=== PATIENT | female | born 1950 | race Caucasian/White ===

== ENCOUNTER 2023-01-22 10:27 | Outpatient (CLI) | payer MEDICARE, BC, SELFPAY | END 2023-01-22 10:28 | disposition home or self-care (01) | LOC: AMB 01-26 17:24 | PROVIDERS: Visit Provider Family Medicine | DX: R42 Dizziness and giddiness (principal); R11.2 Nausea with vomiting, unspecified | CPT/HCPCS: A0425; A0427 ==

== ENCOUNTER 2023-01-22 10:52 | Emergency (ER) | payer MEDICARE, BC, SELFPAY ==
[2023-01-22] VITALS (20 sets, daily range): BP systolic 99–152; BP diastolic 66–91; PULSE 57–81; RESP 12–16; TEMP 36.1; O2SAT 89–100; BMI 31.9
[2023-01-22 11:45] LABS: Chloride* 105 mmol/L (96-114); Potassium* 3.8 mmol/L (3.6-5.1); Sodium* 132 mmol/L (135-149)
[2023-01-22 11:47] LABS: Creatinine* 0.9 mg/dL (0.5-1.5); Est. Creatinine Clearance* 49.79; Estimated Glomerular Filt Rate 67 ml/min
[2023-01-22 11:48] LABS: Anion Gap 8 mEq/L (7-15); Blood Urea Nitrogen* 20 mg/dL (7-30); Carbon Dioxide* 19 mmol/L (20-32); Glucose* 135 mg/dL (60-115)
[2023-01-22 11:49] LABS: Calcium* 9.4 mg/dL (8.4-10.6)
[2023-01-22 11:52] LABS: Basophils Absolute Auto 0.01 K/uL (0.00-0.30); Basophils Percent Auto 0.2 % (0.0-3.0); Eosinophils Absolute Auto 0.06 K/uL (0.00-0.50); Eosinophils Percent Auto 1.1 % (0.0-7.0); Hematocrit 38.1 % (33.0-51.0); Hemoglobin* 12.8 gm/dL (12.0-16.0); Immature Granulocytes Abs Auto 0.01 K/uL (0.00-0.30); Immature Granulocytes Pct Auto 0.2 %; Lymphocytes Percent Auto 41.5 % (20-44); Mean Corpuscular HGB Conc 34 gm/dL (32-36); Mean Corpuscular Hemoglobin 31 pg (26-34); Mean Corpuscular Volume 93 fL (80-100); Monocytes Percent Auto 7.9 % (0.0-11.0); Neutrophils Percent Auto 49.1 % (42.0-72.0); Platelet Count* 333 K/uL (140-440); RDW Coefficient of Variation % 13.5 % (11.5-15.5); Red Blood Count 4.11 m/uL (4.00-5.20)
[2023-01-22 12:05] LABS: Slide Review Reflex No
[2023-01-22 12:07] LABS: Troponin I* < 0.01 ng/mL (0.01-0.04)
--- NOTE | 2023-01-22 12:11 | ED_ITS ---
HPI - Syncope General Chief Complaint: Dizziness/Vertigo Stated Complaint: Syncopal Time Seen by Provider: 01/22/23 11:05 History of Present Illness HPI narrative: This 72-year-old female comes in for evaluation of a syncopal event that occurred just prior to arrival. She states that she was at work in a standing position and began to feel lightheaded. She sat down and soon thereafter had brief loss of consciousness. She did have vital signs obtained shortly after this which showed low blood pressure and low heart rate. At the time of her arrival here these vital signs of normalized. She denies having any fever or signs of infection. She states that she has not been feeling so well over the past day or 2 and has not slept as well at night. She is working a job that is rather vigorous for her and wonders if she is behind on fluids a bit. She is not taking any medications but did get some gummy bears at a co-op 3 days ago that had magnesium and melatonin. She states that she has not felt quite right since taking that medicine. She does not report any chest pain, nausea, vomiting, shortness of breath, or diaphoresis. She states that she feels back to normal at this time. Related Data Home Medications Medication Instructions Recorded Confirmed No Known Home Medications 01/22/23 01/22/23 Allergies Allergy/AdvReac Type Severity Reaction Status Date / Time penicillin G Allergy Unknown Verified 01/22/23 11:16 Review of Systems Status of ROS: Reports: 10 or more systems reviewed and unremarkable except as noted in History and below Narrative: Constitutional: No fevers, no weight gain or loss. Eyes: No discharge. No vision changes. HENT: No congestion, no sore throat, no ear pain. Cardiovascular: No chest pain, no palpitations. Respiratory: No shortness of breath, no wheezes, no cough. Gastrointestinal: No abdominal pain, no vomiting, no diarrhea. Genitourinary: No dysuria, no hematuria. Musculoskeletal: Normal range of motion. Skin: No rashes, no pruritis. Neurological: No weakness, sensory change, speech change. Syncopal event as described above. Endo/Heme/Allergies: No bruising or bleeding. No polydipsia. Pysch: no suicidality, no anxiety, no insomnia. All other systems reviewed and are negative. PFSH PFSH Social History Smoking Status: Unknown if ever smoked Non-prescribed substance use: denies use Exam Narrative: Exam Narrative: Constitutional: Well-developed, well-nourished, no acute distress. HEENT: Normocephalic, atraumatic. Neck: Normal range of motion. Nontender. Supple. Heart: Regular. No murmurs. Normal rate. Intact distal pulses. Lungs: Clear to auscultation. No chest discomfort. No wheezes, rhonchi, or rales. Abdomen: Normal bowel sounds. Nontender. No rebound tenderness. Genitalia: Deferred. Back: No midline tenderness. Normal range of motion. Extremities: Normal range of motion. No injury. No pedal edema. Skin: Intact. No rash. Warm. No erythema or pallor. Neurologic: No altered sensation. No weakness. Alert and oriented. Psychiatric: No suicidality. No anxiety or depression. No insomnia. Nursing notes and vitals signs are reviewed. Const: Vital Signs, click to edit/add: Vital Signs - 24 hr 01/22/23 11:00 01/22/23 11:12 01/22/23 11:23 Temperature 96.9 F L Pulse Rate 59 L Pulse Rate [Pulse Oximeter] 61 Pulse Rate [orthos tatic lying] Pulse Rate [orthos tatic sitting] Pulse Rate [orthos tatic standing] Respiratory Rate 12 Blood Pressure Blood Pressure [Ri ght Upper Arm] 99/66 Blood Pressure [or thostatic lying] Blood Pressure [or thostatic sitting] Blood Pressure [or thostatic standing ] Pulse Oximetry 95 97 93 [facility] 01/22/23 11:26 01/22/23 11:30 01/22/23 11:32 Temperature Pulse Rate 57 L 59 L 58 L Pulse Rate [Pulse Oximeter] Pulse Rate [orthos tatic lying] Pulse Rate [orthos tatic sitting] Pulse Rate [orthos tatic standing] Respiratory Rate Blood Pressure 116/71 122/68 Blood Pressure [Ri ght Upper Arm] Blood Pressure [or thostatic lying] Blood Pressure [or thostatic sitting] Blood Pressure [or thostatic standing ] Pulse Oximetry 97 97 97 Oxygen Delivery Me thod 01/22/23 11:33 01/22/23 11:45 01/22/23 12:00 Temperature Pulse Rate 62 69 71 Pulse Rate [Pulse Oximeter] Pulse Rate [orthos tatic lying] Pulse Rate [orthos tatic sitting] Pulse Rate [orthos tatic standing] Respiratory Rate Blood Pressure Blood Pressure [Ri ght Upper Arm] Blood Pressure [or thostatic lying] Blood Pressure [or thostatic sitting] Blood Pressure [or thostatic standing ] Pulse Oximetry 93 96 99 [facility] 01/22/23 12:02 01/22/23 12:15 01/22/23 12:30 Temperature Pulse Rate 65 69 67 Pulse Rate [Pulse Oximeter] Pulse Rate [orthos tatic lying] Pulse Rate [orthos tatic sitting] Pulse Rate [orthos tatic standing] Respiratory Rate Blood Pressure 139/80 Blood Pressure [Ri ght Upper Arm] Blood Pressure [or thostatic lying] Blood Pressure [or thostatic sitting] Blood Pressure [or thostatic standing ] Pulse Oximetry 99 100 95 [facility] 01/22/23 12:32 01/22/23 12:34 01/22/23 12:35 Temperature Pulse Rate 70 74 80 Pulse Rate [Pulse Oximeter] Pulse Rate [orthos tatic lying] Pulse Rate [orthos tatic sitting] Pulse Rate [orthos tatic standing] Respiratory Rate Blood Pressure 140/71 H 152/91 H 146/87 H Blood Pressure [Ri ght Upper Arm] Blood Pressure [or thostatic lying] Blood Pressure [or thostatic sitting] Blood Pressure [or thostatic standing ] Pulse Oximetry 99 98 89 [facility] 01/22/23 12:36 01/22/23 12:38 01/22/23 12:45 Temperature Pulse Rate 76 71 Pulse Rate [Pulse Oximeter] Pulse Rate [orthos tatic lying] 72 Pulse Rate [orthos tatic sitting] 73 Pulse Rate [orthos tatic standing] 81 Respiratory Rate Blood Pressure Blood Pressure [Ri ght Upper Arm] Blood Pressure [or thostatic lying] 140/71 H Blood Pressure [or thostatic sitting] 152/91 H Blood Pressure [or thostatic standing ] 146/87 H Pulse Oximetry 100 100 [facility] 01/22/23 13:00 01/22/23 13:00 01/22/23 13:02 Temperature Pulse Rate 67 69 Pulse Rate [Pulse Oximeter] Pulse Rate [orthos tatic lying] Pulse Rate [orthos tatic sitting] Pulse Rate [orthos tatic standing] Respiratory Rate 16 Blood Pressure 147/84 H Blood Pressure [Ri ght Upper Arm] Blood Pressure [or thostatic lying] Blood Pressure [or thostatic sitting] Blood Pressure [or thostatic standing ] Pulse Oximetry 100 100 Oxygen Delivery Me thod Course Vital Signs Vital signs: Initial Vital Signs Pulse Oximetry 95 01/22/23 11:00 Vital Signs Pulse Oximetry 95 01/22/23 11:00 Temperature 96.9 F L 01/22/23 11:12 Pulse Rate 69 01/22/23 13:02 Respiratory Rate 16 01/22/23 13:00 Blood Pressure 147/84 H 01/22/23 13:02 Pulse Oximetry 100 01/22/23 13:02 Oxygen Delivery Method Room Air 01/22/23 11:12 MDM - Syncope MDM Narrative Medical decision making narrative: This patient comes in for evaluation of a syncopal event that occurred just prior to arrival. Upon arrival here she has normal vital signs. Her blood pressure initially was 99/66 but when recheck as improved to 120-140 for systolic value. Lab results returned also with reassuring findings. Her sodium was a bit low at 132. Her troponin is negative. EKG also shows no abnormalities. The patient did receive a L of normal saline intravenously. She states that she is feeling better. Orthostatic blood pressures are obtained and these are all in normal range. She did not have any lightheadedness when she was in upright position. She is okay to be discharged home to resume current plans. She did take a gummy bear that head magnesium and melatonin in it. She states that there was some other component that she did not recognize. She took this over the last couple days and states that she has not been feeling quite right. I advised her to avoid taking this medicine. Lab Data Labs: Lab Results 01/22/23 01/22/23 Range/Units 11:09 11:50 WBC 5.30 (4.50-11.00) K/uL RBC 4.11 (4.00-5.20) m/uL Hgb 12.8 (12.0-16.0) gm/dL Hct 38.1 (33.0-51.0) % MCV 93 (80-100) fL MCH 31 (26-34) pg MCHC 34 (32-36) gm/dL RDW Coeff of Jw 13.5 (11.5-15.5) % Plt Count 333 (140-440) K/uL Neut % (Auto) 49.1 (42.0-72.0) % Lymph % (Auto) 41.5 (20-44) % [place] % (Auto) 7.9 (0.0-11.0) % Eos % (Auto) 1.1 (0.0-7.0) % Baso % (Auto) 0.2 (0.0-3.0) % Neut # (Auto) 2.60 (1.7-7.0) K/uL Lymph # (Auto) 2.20 (0.90-2.90) K/uL [place] # (Auto) 0.40 (0.00-0.90) K/UL Eos # (Auto) 0.06 (0.00-0.50) K/uL Baso # (Auto) 0.01 (0.00-0.30) K/uL Abs Immat Gran (auto) 0.01 (0.00-0.30) K/uL Imm/Tot Granulo (auto) 0.2 % Sodium 132 L (135-149) mmol/L Potassium 3.8 (3.6-5.1) mmol/L Chloride 105 (96-114) mmol/L Carbon Dioxide 19 L (20-32) mmol/L Anion Gap 8 (7-15) mEq/L BUN 20 (7-30) mg/dL Creatinine 0.9 (0.5-1.5) mg/dL Estimated Creat Clear 49.79 Estimated GFR 67 ml/min Glucose 135 H (60-115) mg/dL Calcium 9.4 (8.4-10.6) mg/dL Troponin I < 0.01 L (0.01-0.04) ng/mL SARS-CoV-2 (PCR) Negative SARS-CoV-2 (Negative) Influenza Type A (PCR) Negative PCR FLU A (Negative) Influenza Type B (PCR) Negative PCR FLU B (Negative) ECG Data Attestation: I personally reviewed and interpreted this ECG as follows: Interpretation: Normal sinus rhythm. Rate is 55 beats per minute. There are no ST or T-wave abnormalities. Discharge Plan Discharge Clinical Impression: Syncope, vasovagal Patient Disposition: Home w/ Parent or Adult Condition: Improved Additional Instructions: Continue current plans. Follow up with primary physician or return if symptoms are recurrent. Prescriptions: No Action No Known Home Medications Follow Up/Referrals: Erika Anderson MD [Primary Care Provider] - Stand Alone Forms: [employer] Info Instructions
[2023-01-22 12:37] LABS: PCR FLU A Negative PCR FLU A (Negative); PCR FLU B Negative PCR FLU B (Negative)
[2023-01-22 13:06] LABS: SARS PCR* Negative SARS-CoV-2 (Negative)
== END 2023-01-22 13:54 | disposition home or self-care (01) ==
LOC: ED 13:37
PROVIDERS: Emergency Provider Emergency Medicine Emergency Medical Services; PCP Internal Medicine
DX: R55 Syncope and collapse (principal)
CPT/HCPCS: 36415; 80048; 84484; 85025; 87631; 93005; 94761; 99284

== ENCOUNTER 2024-02-09 14:05 | Emergency (ER) | payer OTHER, SELFPAY ==
[2024-02-09 14:15] VITALS: BP 134/78; PULSE 85; RESP 18; TEMP 36.4; O2SAT 99; BMI 28.9
--- NOTE | 2024-02-09 14:49 | ED.SYNCOPE ---
HPI - Syncope General Chief Complaint: Syncope/Fainted Stated Complaint: Syncopal Time Seen by Provider: 02/09/24 14:11 History of Present Illness HPI narrative: This 73-year-old female comes in for evaluation of a syncopal event that occurred prior to arrival. She was at an event sitting at a table eating food when she began to feel lightheaded. She was noticed by others to be staring off into space. She states that she did feel lightheaded and then the next thing she knew she was laying down and woke up with people around her. She did not report any pain. A bystander helped her laid down and she immediately recovered. She states that she has had a rather stressful week and did have 3 nights where she slept at another place to assist with caregiving for some people. She did not sleep so well those 3 nights. She did have similar symptoms about a year ago and was seen by me here in this emergency department for evaluation of that episode. Otherwise she states that she has been in good health. She states that she normally exercises by swimming and tolerates this well. Related Data Home Medications ?Medication ?Instructions ?Recorded ?Confirmed No Known Home Medications 01/22/23 02/09/24 Allergies Allergy/AdvReac Type Severity Reaction Status Date / Time penicillin G Allergy Unknown Verified 01/22/23 11:16 Review of Systems Status of ROS: Reports: 10 or more systems reviewed and unremarkable except as noted in History and below Narrative: Constitutional: No fevers, no weight gain or loss. Eyes: No discharge. No vision changes. HENT: No congestion, no sore throat, no ear pain. Cardiovascular: No chest pain, no palpitations. Respiratory: No shortness of breath, no wheezes, no cough. Gastrointestinal: No abdominal pain, no vomiting, no diarrhea. Genitourinary: No dysuria, no hematuria. Musculoskeletal: Normal range of motion. Skin: No rashes, no pruritis. Neurological: No dizziness, weakness, sensory change, speech change. Endo/Heme/Allergies: No bruising or bleeding. No polydipsia. Pysch: no suicidality, no anxiety, no insomnia. All other systems reviewed and are negative. PFSH PFSH Social History Smoking Status: Unknown if ever smoked Non-prescribed substance use: denies use Exam Narrative: Exam Narrative: Constitutional: Well-developed, well-nourished, no acute distress. HEENT: Normocephalic, atraumatic. Neck: Normal range of motion. Nontender. Supple. Heart: Regular. No murmurs. Normal rate. Intact distal pulses. Lungs: Clear to auscultation. No chest discomfort. No wheezes, rhonchi, or rales. Abdomen: Normal bowel sounds. Nontender. No rebound tenderness. Genitalia: Deferred. Back: No midline tenderness. Normal range of motion. Extremities: Normal range of motion. No injury. Skin: Intact. No rash. Warm. No erythema or pallor. Neurologic: No altered sensation. No weakness. Alert and oriented. Psychiatric: No suicidality. No anxiety or depression. No insomnia. Nursing notes and vitals signs are reviewed. Const: Vital Signs, click to edit/add: Vital Signs - 24 hr 02/09/24 14:15 Temperature 97.6 F Pulse Rate [Right Pulse Oximeter] 85 Respiratory Rate 18 Blood Pressure [Ri ght Upper Arm] 134/78 Pulse Oximetry 99 Oxygen Delivery Me thod Room Air Course Vital Signs Vital signs: Initial Vital Signs Temperature 97.6 F 02/09/24 14:15 Temperature Source Temporal Artery Scan 02/09/24 14:15 Pulse Rate 85 02/09/24 14:15 Pulse Rhythm Regular 02/09/24 14:15 Pulse Strength 3+ Normal 02/09/24 14:15 Respiratory Rate 18 02/09/24 14:15 Blood Pressure 134/78 02/09/24 14:15 Blood Pressure Mean 96 02/09/24 14:15 Blood Pressure Position Sitting 02/09/24 14:15 Pulse Oximetry 99 02/09/24 14:15 Oxygen Delivery Method Room Air 02/09/24 14:15 Vital Signs Temperature 97.6 F 02/09/24 14:15 Pulse Rate 85 02/09/24 14:15 Respiratory Rate 18 02/09/24 14:15 Blood Pressure 134/78 02/09/24 14:15 Pulse Oximetry 99 02/09/24 14:15 Oxygen Delivery Method Room Air 02/09/24 14:15 Temperature 97.6 F 02/09/24 14:15 Pulse Rate 85 02/09/24 14:15 Respiratory Rate 18 02/09/24 14:15 Blood Pressure 134/78 02/09/24 14:15 Pulse Oximetry 99 02/09/24 14:15 Oxygen Delivery Method Room Air 02/09/24 14:15 MDM - Syncope MDM Narrative Medical decision making narrative: This patient comes in because of a syncopal event that occurred prior to arrival. She recovered and states that she is feeling almost completely back to normal. She is able to get up and ambulate and is not having any symptoms. I did discuss with her options for evaluation of this event with options of labs and imaging studies. The patient states that she feels that she is okay and is declining any of these further diagnostic tools. I advised her to return if symptoms are recurrent. Discharge Plan Discharge Clinical Impression: Vasovagal syncope Patient Disposition: Home w/ Parent or Adult Condition: Improved Additional Instructions: Continue current plans. Follow up with primary physician for ongoing management. If symptoms are recurrent return for further evaluation and treatment. Prescriptions: No Action No Known Home Medications Follow Up/Referrals: Provider,Not a Local [Primary Care Provider] - Stand Alone Forms: [employer] Info Instructions
== END 2024-02-09 15:10 | disposition home or self-care (01) ==
PROVIDERS: Emergency Provider Emergency Medicine Emergency Medical Services
DX: R55 Syncope and collapse (principal)
CPT/HCPCS: 99283; 99284